=== PATIENT | female | born 1985 | race Caucasian/White ===

== ENCOUNTER 2023-03-31 20:39 | Day surgery (SDC) | payer BC, SELFPAY ==
[2023-03-31 20:58] VITALS: BP 121/90; PULSE 102; RESP 12; TEMP 37.1; O2SAT 100; BMI 25.7
--- NOTE | 2023-03-31 21:10 | ED.NURSE ---
Patient believes that the bleeding is starting again and the swelling is increasing. MD issa notified.
--- NOTE | 2023-03-31 21:16 | CRLHL7_ITS ---
For Patients: As a result of the Century Cures Act, medical imaging exams and procedure reports are released immediately into your electronic medical record. You may view this report before your referring provider. If you have questions, please contact your health care provider. INDICATION: Bleeding biopsy from right breast, Bleeding biopsy on the right TECHNIQUE: CT chest with i.v. contrast during the venous phase. Coronal and sagittal reformats were obtained. CONTRAST: 75 mL Isovue 370 COMPARISON: None FINDINGS: Cardiovascular: The heart has an unremarkable appearance and size. The pulmonary arteries are unremarkable in appearance. No sign of aneurysm or dissection in the thoracic aorta. Mediastinum: No mass or adenopathy seen. Lung: Both lungs are unremarkable in appearance. Pleura and pericardium: No sign of pleural effusion seen. No significant pericardial effusion is present. Chest wall and axilla: There is a large soft tissue hematoma present in the right lateral breast extending posteriorly to the chest wall, laterally to the axilla, and inferiorly to the level of the diaphragm. It measures 7.5 x 5.5 x 15 cm (AP x RL x CC). Bone: Unremarkable for age. Upper abdomen: Unremarkable. IMPRESSION: 1. There is a large soft tissue hematoma present in the right breast extending posteriorly to the chest wall, laterally to the axilla, and inferiorly to the level of the diaphragm. It measures 7.5 x 5.5 x 15 cm (AP x RL x CC). Dictated by Jose Maria Barillas MD @ 03/31/2023 10:39:31 PM Please note that all CT scans at this facility use dose modulation, iterative reconstruction, and/or weight-based dosing when appropriate to reduce radiation dose to as low as reasonably achievable. Dictated by: Jose Maria Barillas MD @ 03/31/2023 22:39:39 (Electronically Signed)
--- NOTE | 2023-03-31 21:40 | ED.GENADULT ---
HPI - General Adult General Chief complaint: Post Op Complication Stated complaint: Biopsy lymphnode complication-bleeding and swollen Time Seen by Provider: 03/31/23 21:12 History of Present Illness HPI narrative: Patient is a 38-year-old woman who is visiting the area from [facility] who had a breast biopsy with axillary lymph node biopsy earlier today. Patient is not on anticoagulants but comes in with a increased bleeding at the axilla site on the right. She has obvious soft tissues swelling increasing around the biopsy site. The biopsy on the breast appears to be under good control with minimal bleeding and good hemostasis with no significant signs of infection. Patient has had no fevers no chills no night sweats no chest pain no shortness of breath. She is concerned as the area of induration is swelling is increasing. Related Data Allergies Allergy/AdvReac Type Severity Reaction Status Date / Time No Known Drug Allergies Allergy Verified 03/31/23 22:18 Review of Systems Status of ROS: Reports: 10 or more systems reviewed and unremarkable except as noted in History and below PFSH FOR[facility] Surgical History (Updated 03/31/23 @ 22:26 by Yoli Almanzar MD) S/P D&C (status post dilation and curettage) ?Z98.890 - Other specified postprocedural states (ICD-10) Social History (Updated 03/31/23 @ 22:26 by Yoli Almanzar MD) Narrative: She works in IT. She does not smoke. She drinks alcohol occasionally. She is . She lives in [place] Do you use any of these nicotine containing products: None Non-prescribed substance use: denies use Exam Narrative: Exam Narrative: EXAM GENERAL: Patient appears comfortable and well. EYES: No scleral icterus. ENT: Tympanic membranes and oropharynx normal. THYROID: no thyroid nodules or thyromegaly. LYMPH: No supraclavicular or cervical lymphadenopathy. SKIN: The incision site is covered in bright red blood in the right axilla with dressing on top. There is soft tissue swelling around the incision site as well. No signs of erythema breast biopsy site is clean and reasonably dry. EXT: No dependent lower extremity pedal edema. HEART: Regular rate and rhythm with no murmurs, rubs, or gallops. LUNGS: Clear to auscultation bilaterally with no crackles or wheezes. ABD: Soft, non tender, non distended. PSYCH: Good eye contact, speech is not pressured. Const: Vital Signs, click to edit/add: Vital Signs - 24 hr 03/31/23 20:58 03/31/23 21:44 03/31/23 21:45 Temperature 98.8 F Pulse Rate 105 H 103 H Pulse Rate [Pulse Oximeter] 102 H Respiratory Rate 12 Blood Pressure Blood Pressure [Ri ght Upper Arm] 121/90 H Pulse Oximetry 100 99 95 Oxygen Delivery Me thod Room Air 03/31/23 22:01 03/31/23 22:03 Temperature Pulse Rate 104 H 102 H Pulse Rate [Pulse Oximeter] Respiratory Rate Blood Pressure 144/82 H Blood Pressure [Ri ght Upper Arm] Pulse Oximetry 100 100 Oxygen Delivery Me thod Course Course ED Course: Patient is seen along with General surgery at this point we are proceeding with CT of the chest with IV contrast. Vital Signs Vital signs: Initial Vital Signs Temperature 98.8 F 03/31/23 20:58 Temperature Source Temporal Artery Scan 03/31/23 20:58 Pulse Rate 102 H 03/31/23 20:58 Pulse Rhythm Regular 03/31/23 20:58 Respiratory Rate 12 03/31/23 20:58 Blood Pressure 121/90 H 03/31/23 20:58 Blood Pressure Mean 100 03/31/23 20:58 Blood Pressure Position Sitting 03/31/23 20:58 Pulse Oximetry 100 03/31/23 20:58 Oxygen Delivery Method Room Air 03/31/23 20:58 Vital Signs Temperature 98.8 F 03/31/23 20:58 Pulse Rate 102 H 03/31/23 20:58 Respiratory Rate 12 03/31/23 20:58 Blood Pressure 121/90 H 03/31/23 20:58 Pulse Oximetry 100 03/31/23 20:58 Oxygen Delivery Method Room Air 03/31/23 20:58 Temperature 98.8 F 03/31/23 20:58 Pulse Rate 102 H 03/31/23 22:03 Respiratory Rate 12 03/31/23 20:58 Blood Pressure 144/82 H 03/31/23 22:03 Pulse Oximetry 100 03/31/23 22:03 Oxygen Delivery Method Room Air 03/31/23 20:58 Medical Decision Making MDM Narrative Medical decision making narrative: Patient is a 38-year-old woman who comes in today with pain and induration at the right axillary biopsy site. Is large loculated fluid collection in the patient will be taken to the operating room under the care of Dr. Yoli Merida. She will remain NPO and cares transferred at this time. Differential Diagnosis Differential Diagnosis: Infection abscess hematoma seroma Lab Data Labs: Lab Results 03/31/23 Range/Units 21:40 WBC 14.34 H (4.50-11.00) K/uL RBC 4.17 (4.00-5.20) m/uL Hgb 12.9 (12.0-16.0) gm/dL Hct 35.9 (33.0-51.0) % MCV 86 (80-100) fL MCH 31 (26-34) pg MCHC 36 (32-36) gm/dL RDW Coeff of Tyler 11.4 L (11.5-15.5) % Plt Count 356 (140-440) K/uL Neut % (Auto) 85.0 H (42.0-72.0) % Lymph % (Auto) 9.9 L (20-44) % Austin % (Auto) 4.7 (0.0-11.0) % Eos % (Auto) 0.2 (0.0-7.0) % Baso % (Auto) 0.1 (0.0-3.0) % Neut # (Auto) 12.20 H (1.7-7.0) K/uL Lymph # (Auto) 1.40 (0.90-2.90) K/uL Austin # (Auto) 0.70 (0.00-0.90) K/UL Eos # (Auto) 0.00 (0.00-0.50) K/uL Baso # (Auto) 0.00 (0.00-0.30) K/uL Abs Immat Gran (auto) 0.00 (0.00-0.30) K/uL Imm/Tot Granulo (auto) 0.1 % Sodium 137 (135-149) mmol/L Potassium 3.8 (3.6-5.1) mmol/L Chloride 103 (96-114) mmol/L Carbon Dioxide 22 (20-32) mmol/L Anion Gap 12 (7-15) mEq/L BUN 11 (5-24) mg/dL Creatinine 0.5 (0.5-1.5) mg/dL Estimated Creat Clear 128.67 Estimated GFR 125 ml/min Glucose 118 H (60-115) mg/dL Calcium 9.3 (8.4-10.6) mg/dL Discharge Plan Discharge Clinical Impression: Post-operative complication Patient Disposition: XFER to OR Condition: Stable Follow Up/Referrals: Provider,Not a Local [Primary Care Provider] -
[2023-03-31 21:44] VITALS: PULSE 105; O2SAT 99
[2023-03-31 21:45] VITALS: PULSE 103; O2SAT 95
[2023-03-31 21:48] LABS: Basophils Percent Auto 0.1 % (0.0-3.0); Eosinophils Percent Auto 0.2 % (0.0-7.0); Hematocrit 35.9 % (33.0-51.0); Hemoglobin* 12.9 gm/dL (12.0-16.0); Immature Granulocytes Pct Auto 0.1 %; Lymphocytes Percent Auto 9.9 % (20-44); Mean Corpuscular HGB Conc 36 gm/dL (32-36); Mean Corpuscular Hemoglobin 31 pg (26-34); Mean Corpuscular Volume 86 fL (80-100); Monocytes Percent Auto 4.7 % (0.0-11.0); Platelet Count* 356 K/uL (140-440); RDW Coefficient of Variation % 11.4 % (11.5-15.5); Red Blood Count 4.17 m/uL (4.00-5.20); White Blood Count* 14.34 K/uL (4.50-11.00)
[2023-03-31 21:49] LABS: Slide Review Reflex No
[2023-03-31 22:01] VITALS: PULSE 104; O2SAT 100
[2023-03-31 22:03] VITALS: BP 144/82; PULSE 102; O2SAT 100
[2023-03-31 22:03] LABS: Chloride* 103 mmol/L (96-114)
[2023-03-31 22:04] LABS: Potassium* 3.8 mmol/L (3.6-5.1); Sodium* 137 mmol/L (135-149)
[2023-03-31 22:06] LABS: Creatinine* 0.5 mg/dL (0.5-1.5); Est. Creatinine Clearance* 128.67; Estimated Glomerular Filt Rate 125 ml/min
[2023-03-31 22:07] LABS: Anion Gap 12 mEq/L (7-15); Blood Urea Nitrogen* 11 mg/dL (5-24); Calcium* 9.3 mg/dL (8.4-10.6); Carbon Dioxide* 22 mmol/L (20-32); Glucose* 118 mg/dL (60-115)
--- NOTE | 2023-03-31 22:22 | P.GSHP_ITS ---
History of Present Illness History of Present Illness Date Seen: 03/31/23 Chief complaint: Biopsy lymphnode complication-bleeding and swollen Narrative: Hemalatha Sorto is a 38 year old female presents to the emergency department with likely hematoma after her right axillary biopsy. She felt a breast mass on the right and underwent a biopsy today of that right breast mass as well as a right axillary lymph node. She went home and worked but around 2:30 p.m. she began to have significant pain. She does live in [place] and drove her son to a sports event in [place] and on the way she felt lightheaded. She stop to rest at a gas station. She rested and 8 and iced her arm and then felt better. She had someone slat pickler her son and take him had and when she felt better she continued on to [facility]. When she rested the pain was tolerable. She then presented to the event and was noted to be pale. Her right hand was blue and cold. She had a syncopal episode. She did not fall or hit her head. This was witnessed and she was caught. She then was seen by EMS. She was assessed and found to have a large hematoma in her right axilla. The hematoma appeared to be growing before their eyes when she was evaluated. She was then transported by car to [facility]. She denies numbness and tingling in her hand. She states she has a history of poor circulation; her hands are always cold. Her friend who was accompanying her states that the patient has had Raynaud's type symptoms. She last ate at 4:45 p.m.. [facility] Surgical History (Updated 03/31/23 @ 22:26 by Yoli Almanzar MD) S/P D&C (status post dilation and curettage) ?Z98.890 - Other specified postprocedural states (ICD-10) Social History (Updated 03/31/23 @ 22:26 by Yoli Almanzar MD) Narrative: She works in [employer]. She does not smoke. She drinks alcohol occasionally. She is . She lives in [place] Do you use any of these nicotine containing products: None Non-prescribed substance use: denies use Meds Home Medications and Allergies Allergies Allergy/AdvReac Type Severity Reaction Status Date / Time No Known Drug Allergies Allergy Verified 03/31/23 22:18 Exam Narrative: Exam Narrative: General appearance: Alert, cooperative, and in no distress Eyes: PERRLA, eye lids clear, and sclera white HENT Head: Normocephalic Ears: External ears normal Pulmonary: Clear to auscultation bilaterally Cardiovascular Heart: Mildly tachycardic but regular. Breast: Right breast with biopsy site dressing in place. Small amount of blood soilage. Lymphatic: In her right axilla she has a large mass. This grapefruit sized. This is tender and there is a large amount of blood staining on the bandage. Extremities: Both hands are equally cool. Cap refill is 3 seconds bilaterally without asymmetry. She has a bounding radial pulse on the right however. Musculoskeletal: Extremities: Upper: Both upper extremities have normal joint range of motion and intact strength. Lower: Both lower extremities have normal joint range of motion and intact strength. Skin: Normal skin color, texture, and turgor. Neurologic: No paresthesias of right hand. Strength in right hand is normal. Psychiatric: Alert, oriented, cooperative, normal affect. Const: Vital Signs, click to edit/add: Vital Signs - 24 hr 03/31/23 20:58 03/31/23 21:44 03/31/23 21:45 Temperature 98.8 F Pulse Rate 105 H 103 H Pulse Rate [Pulse Oximeter] 102 H Respiratory Rate 12 Blood Pressure Blood Pressure [Ri ght Upper Arm] 121/90 H Pulse Oximetry 100 99 95 Oxygen Delivery Me thod Room Air 03/31/23 22:01 03/31/23 22:03 Temperature Pulse Rate 104 H 102 H Pulse Rate [Pulse Oximeter] Respiratory Rate Blood Pressure 144/82 H Blood Pressure [Ri ght Upper Arm] Pulse Oximetry 100 100 Oxygen Delivery Me thod Results Results Labs: Hemoglobin is 12.9 CT scan - chest: report reviewed and image reviewed Additional studies: CT scan of the chest was reviewed. Final radiology report is pending. She has a large right axillary hematoma which measures approximately 5.5 x 9 cm. There does not appear to be any active extravasation. Assessment and Plan Assessment and plan (1) Hematoma of right axilla: Status: Acute Plan The patient is a 38-year-old female with a right axillary hematoma after biopsy a right axillary lymph node. We discussed options of observation versus hematoma evacuation. I explained that many times no active bleeding is noted, however evacuating the hematoma will at minimum be much more comfortable for her. If she was opposed to surgery, we could consider observation with a pressure dressing. At this point given the size of the hematoma, her significant pain and the fact that it seemed to have increased in size quite rapidly I recommended evacuation. She and I discussed recovery from the procedure as well as recovery. We did discuss that depending on the size of the space she may require drain placement, however I will try to avoid this if possible. She was agreeable to proceed and signed informed consent. We will proceed to the OR urgently this evening.
--- NOTE | 2023-03-31 22:47 | ED.NURSE ---
patient taken by surgery staff.
[2023-03-31] MEDS: LACTATED RINGERS 1000 ML 1,000 ML 75 ML IV (22:51)
[2023-03-31] MEDS: CEFAZOLIN 1 GM inj IVP (22:59)
[2023-03-31] MEDS: BUPIVACAINE 0.25% 30 ML INJECTION (23:41)
[2023-03-31] MEDS: LACTATED RINGERS 1000 ML 1,000 ML 100 ML IV (23:59)
[2023-04-01] VITALS (16 sets, daily range): BP systolic 107–137; BP diastolic 71–95; PULSE 84–102; RESP 10–16; TEMP 36.4–36.8; O2SAT 99–100
--- NOTE | 2023-04-01 00:27 | PM.GSPRC ---
Operative Note Pre-op diagnosis: Right axillary hematoma after lymph node biopsy Post-op diagnosis: Same Type of Procedure: Evacuation of right axillary hematoma Indications: The patient is a 38-year-old female who underwent core biopsy of an enlarged axillary lymph node, suspicious for metastatic breast cancer earlier today in [place]. She was on her way to [facility] when she began to have pain and swelling in her axilla. She had a syncopal episode and presented to [facility] for further evaluation. She was noted to have a very large axillary hematoma. She was tachycardic. CT scan did not show any active extravasation, however there was a large hematoma measuring 5.5 x 7.5 x 15 cm. I recommended evacuation in the operating room and she agreed to proceed. Procedure Description: After discussing the risks and benefits of the procedure, the patient signed informed consent.? The operative site was marked and the patient was brought to the operating room and placed on the operating table in supine position.? Care was taken to pad the patient's pressure points.?? The patient was then intubated by anesthesia.?? The operative site was then prepped and draped in the usual sterile fashion.? A time-out was then performed. An incision was made just below the hairline in the right axilla. Dissection was taken down into the subcutaneous tissue using cautery. The clavipectoral fascia was entered. There was a large amount of blood staining here. Just beyond this I encountered a large hematoma. This was evacuated. Approximately 4-500 mL of clot was evacuated. This had dissected all the way to the chest wall. Once this was done the area was irrigated with copious saline to look for ongoing bleeding. There were two small bleeding vessels within the cavity which was clamped and ligated. Once this was done hemostasis appeared adequate. The cavity was packed and we waited a few more minutes and re-examined to again ensure hemostasis. There was no further blood welling up though all of the subcutaneous tissue was blood stained. I then placed Surgicel in the cavity as well as Brandi. Because of the large size of the cavity, I elected to place a drain. A 15 Occitan Sergey drain was then placed into the wound and the trocar was used to pull the distal and through the skin just below the incision. This was trimmed and positioned in the space. The drain was then secured with 2-0 Ethilon suture. The wound was then closed with 3 0 Vicryl dermal and 4-0 Monocryl running subcuticular suture. ? The patient was then woken and transported to the recovery area in stable condition. ? The patient tolerated the procedure well. Findings: 4-500 mL hematoma in the right axilla. Small vessel actively bleeding into the cavity. Anesthesia: GETA Surgeon: Yoli Almanzar MD Estimated blood loss (mL): 10 Condition: stable Disposition: PACU Date of procedure: 04/01/23
--- NOTE | 2023-04-01 00:46 | P.ANES_ITS ---
Anesthesia Charges Start Date/Time Anesthesia Start Date: 03/31/23 Anesthesia Start Time: 22:51 Stop Date/Time Anesthesia Stop Date: 04/01/23 Anesthesia Stop Time: 00:14 Summary Emergency: DIRECTOR DRUG
[2023-04-01] MEDS: HYDROmorphone 0.5 mg/0.5 ml inj IVP (03:03)
[2023-04-01] MEDS: HYDROCODONE-ACETAMIN 5-325 MG 1 TAB PO ×2 (05:19→11:52)
--- NOTE | 2023-04-01 06:48 | PC.NURSE ---
End of Shift: Pt arrived to unit from PACU post drainage of hematoma after a breast biopsy earlier that day. LUIS EDUARDO drain in place in right axilla, draining well, patent. 50CC output from shift. RN demonstrated how to operate drain. Pt verbalized understanding. Dressing CDI. Left arm extremity used for BP's. LS CTAB. Pt rated pain between 2-6/10, well-controlled with IV dilauded and norco. Independent in room, continent with bladder, no BM during shift.
[2023-04-01 09:08] LABS: Basophils Absolute Auto 0.01 K/uL (0.00-0.30); Basophils Percent Auto 0.1 % (0.0-3.0); Hematocrit 31.6 % (33.0-51.0); Hemoglobin* 11.2 gm/dL (12.0-16.0); Immature Granulocytes Abs Auto 0.01 K/uL (0.00-0.30); Immature Granulocytes Pct Auto 0.1 %; Lymphocytes Percent Auto 13.8 % (20-44); Mean Corpuscular HGB Conc 35 gm/dL (32-36); Mean Corpuscular Hemoglobin 31 pg (26-34); Mean Corpuscular Volume 87 fL (80-100); Monocytes Percent Auto 3.8 % (0.0-11.0); Neutrophils Percent Auto 82.2 % (42.0-72.0); Platelet Count* 314 K/uL (140-440); RDW Coefficient of Variation % 11.5 % (11.5-15.5); Red Blood Count 3.62 m/uL (4.00-5.20); White Blood Count* 10.65 K/uL (4.50-11.00)
[2023-04-01 09:12] LABS: Slide Review Reflex No
--- NOTE | 2023-04-01 12:52 | PC.NURSE ---
Discharge: patient is alert and oriented, pleasant and cooperative. tolerating a regular diet, rates pain 4/10. LUIS EDUARDO bulb draining and patent, red fluid. 30cc. VSS. Patient discharged today accompanied by Heather CARMONA, to her home. IV removed intact. belongings sheet signed and discharge instructions given and signed. patient verbalized understanding on discharge instructions.
--- NOTE | 2023-04-01 13:34 | PM.DS1 ---
DS: Providers Provider Date Seen: 04/01/23 Primary care physician: Not a Local Provider Attending Physician on discharge: Yoli Almanzar MD DS: Diagnosis Discharge Diagnosis (1) Hematoma of right axilla: Status: Acute DS: Summary Hospital Course Hospital Course: Patient was admitted overnight for observation after evacuation of right axillary hematoma. She did well postoperatively. On postop day 1 she was tolerating a diet and her pain was controlled. She was given instructions on how to care for her drain and discharge home to follow-up with her primary care provider in [place]. Status at Discharge Functional status at discharge: independent ambulation Time Spent with Patient Time attestation: Total time spent providing and/or coordinating discharge services: Exam Narrative: Exam Narrative: General: No acute distress CV: Regular rate Axilla: Soft. Ecchymosis noted. Drain with bloody output. Approximately 20 mL out this morning. Const: Vital Signs, click to edit/add: Vital Signs - 24 hr 03/31/23 20:58 03/31/23 21:44 03/31/23 21:45 Temperature 98.8 F Pulse Rate 105 H 103 H Pulse Rate [Pulse Oximeter] 102 H Pulse Rate [Right Pulse Oximeter] Respiratory Rate 12 Blood Pressure Blood Pressure [Le ft Arm] Blood Pressure [Ri ght Upper Arm] 121/90 H Pulse Oximetry 100 99 95 Oxygen Delivery Me thod Room Air 03/31/23 22:01 03/31/23 22:03 04/01/23 00:09 Temperature 97.5 F L Pulse Rate 104 H 102 H 102 H Pulse Rate [Pulse Oximeter] Pulse Rate [Right Pulse Oximeter] Respiratory Rate 12 Blood Pressure 144/82 H 130/82 Blood Pressure [Le ft Arm] Blood Pressure [Ri ght Upper Arm] Pulse Oximetry 100 100 99 Oxygen Delivery Me thod Room Air 04/01/23 00:15 04/01/23 00:20 04/01/23 00:25 Temperature Pulse Rate 91 88 86 Pulse Rate [Pulse Oximeter] Pulse Rate [Right Pulse Oximeter] Respiratory Rate 12 12 12 Blood Pressure 131/84 137/86 113/86 Blood Pressure [Le ft Arm] Blood Pressure [Ri ght Upper Arm] Pulse Oximetry 99 99 99 Oxygen Delivery Me thod Room Air Room Air Room Air 04/01/23 00:30 04/01/23 00:35 04/01/23 00:50 Temperature 98.1 F Pulse Rate 84 88 Pulse Rate [Pulse Oximeter] Pulse Rate [Right Pulse Oximeter] 87 Respiratory Rate 12 10 L 16 Blood Pressure 133/90 H 133/92 H Blood Pressure [Le ft Arm] 128/95 H Blood Pressure [Ri ght Upper Arm] Pulse Oximetry 99 99 99 Oxygen Delivery Id thod Room Air Room Air Room Air 04/01/23 01:05 04/01/23 01:20 04/01/23 01:35 Temperature 98.1 F 98.1 F 98.1 F Pulse Rate Pulse Rate [Pulse Oximeter] Pulse Rate [Right Pulse Oximeter] 87 85 87 Respiratory Rate 16 16 16 Blood Pressure Blood Pressure [Le ft Arm] 129/94 H 130/95 H 119/83 Blood Pressure [Ri ght Upper Arm] Pulse Oximetry 99 99 100 Oxygen Delivery Id thod Room Air Room Air Room Air 04/01/23 01:43 04/01/23 02:25 04/01/23 03:00 Temperature 98.1 F 98.1 F 98.1 F Pulse Rate 87 Pulse Rate [Pulse Oximeter] Pulse Rate [Right Pulse Oximeter] 95 95 Respiratory Rate 16 16 16 Blood Pressure Blood Pressure [Le ft Arm] 128/95 H 130/91 H 130/91 H Blood Pressure [Ri ght Upper Arm] Pulse Oximetry 100 100 Oxygen Delivery Id thod Room Air Room Air Room Air 04/01/23 06:25 04/01/23 07:00 04/01/23 07:00 Temperature 98.1 F 98.3 F Pulse Rate Pulse Rate [Pulse Oximeter] Pulse Rate [Right Pulse Oximeter] 95 100 100 Respiratory Rate 16 16 Blood Pressure Blood Pressure [Le ft Arm] 130/91 H 107/71 Blood Pressure [Ri ght Upper Arm] Pulse Oximetry 100 100 Oxygen Delivery Me thod Room Air Room Air 04/01/23 10:00 Temperature 98.3 F Pulse Rate Pulse Rate [Pulse Oximeter] Pulse Rate [Right Pulse Oximeter] 100 Respiratory Rate 16 Blood Pressure Blood Pressure [Le ft Arm] 107/71 Blood Pressure [Ri ght Upper Arm] Pulse Oximetry 100 Oxygen Delivery Id thod Room Air DS: Data Data Completed and Pending Labs on day of discharge: Labs from last 24 hours 04/01/23 03/31/23 09:00 21:40 WBC 10.65 14.34 H RBC 3.62 L 4.17 Hgb 11.2 L 12.9 Hct 31.6 L 35.9 MCV 87 86 MCH 31 31 MCHC 35 36 RDW Coeff of [place] 11.5 11.4 L Plt Count 314 356 Neut % (Auto) 82.2 H 85.0 H Lymph % (Auto) 13.8 L 9.9 L [place] % (Auto) 3.8 4.7 Eos % (Auto) 0.0 0.2 Baso % (Auto) 0.1 0.1 Neut # (Auto) 8.80 H 12.20 H Lymph # (Auto) 1.50 1.40 [place] # (Auto) 0.40 0.70 Eos # (Auto) 0.00 0.00 Baso # (Auto) 0.01 0.00 Abs Immat Gran (auto) 0.01 0.00 Imm/Tot Granulo (auto) 0.1 0.1 Sodium 137 Potassium 3.8 Chloride 103 Carbon Dioxide 22 Anion Gap 12 BUN 11 Creatinine 0.5 Estimated Creat Clear 128.67 Estimated GFR 125 Glucose 118 H Calcium 9.3 Discharge Plan Discharge Disposition: Home, Self-Care Discharging Surgeon: Yoli Almanzar Follow-Up Appointment: Follow up with PCP or surgeon next week. Prescriptions: New hydrocodone-acetaminophen 5-325 mg tablet 1 tab PO Q6H PRN (Reason: Pain) Qty: 20 0RF Rx Instructions: 1 - 2 tab orally as needed hydrocodone-acetaminophen 5-325 mg tablet 1 tab PO Q6H PRN (Reason: Pain) Qty: 20 0RF Rx Instructions: 1 tab orally as needed Activity Level: No strenuous activity Activity Detail: No lifting more than 20 lb for 2 weeks with the right arm. Avoid lifting the right arm over your head for at least 1 week Discharge Diet: Regular Patient Instructions: Hydrocodone/Acetaminophen (By mouth), [place] Drain Care (DC), Surgical Site Infections (DC) Additional Instructions: Wound care: Your sutures are under the skin and will dissolve over time. Leave glue in place until it falls off. OK to shower tomorrow but avoid bathing, soaking or swimming for 2 weeks. Pat the incisions dry. No need to wash or scrub the area. Apply ice to the area as needed for swelling. It is also OK to use a heating pad if this provides more comfort to you. Drain care: The drain output will be bloody at first and will gradually turn clear. Empty drain at least 3 times a day. Record drain output. Drain should be removed when there are 30 mL or less for 2 consecutive days. Cover the drain site with Tegaderm or Saran wrap in the shower to keep the area dry. Change drain sponge daily. For your medical provider in [place] to remove the drain: 1) take the bulb off of suction. 2) Cut the suture at the skin, not on the knot. 3) With gentle constant pressure, pull the drain. If there is significant resistance, you should see a surgeon to remove the drain. 4) cover the drain site with gauze to catch any drainage. The area will close over the next few days. Pain control: You were prescribed a pain medication. This medication contains acetaminophen (Tylenol). If you are taking your prescribed pain pills 4 times daily, do not take additional acetaminophen. As your pain improves, you can try taking acetaminophen instead of the prescribed pain pill. It is ok to take Ibuprofen or Naproxen (per directions on packaging). This medication helps with inflammation and swelling. Take an [id number] stool softener while you are taking prescribed pain medications to help alleviate constipation. I recommend Senna and/or Colace. Take as directed on package. If you have not had a bowel movement in 3 days, try taking Miralax as directed on the package. All of these are available over the counter. Follow-up Follow up with your primary care provider or a surgeon next week. Please call if you are experiencing severe pain, nausea, vomiting, fever, lightheadedness or recurrence of the fullness in your arm pit Forms: Work/School Release Follow-up: Provider,Not a Local [Primary Care Provider] - Discharge Orders: Discharge Order (Routine); Ordered 04/01/23 Ordered By: Yoli Almanzar
== END 2023-04-01 12:40 | disposition home or self-care (01) ==
LOC: ED 22:31 → SS 22:40 → MEDSURG 04-01 01:32
PROVIDERS: Emergency Provider Internal Medicine; Visit Provider Surgery
PROC: (CPT 10140; principal; 2023-03-31 22:30)
DX: M96.840 Postprocedural hematoma of a musculoskeletal structure following a musculoskeletal system procedure (principal); R55 Syncope and collapse
CPT/HCPCS: 10140; 00400; 36415; 71260; 80048; 85025; 99140; 99283; 99284; A9270; J0330; J0665; J0690; J1100; J1170; J1200; J1885; J2405; J2704; J3010; J3475; J3490; J7120; Q9967